=== PATIENT | male | born 1970 | race Two or more races ===

== ENCOUNTER 2022-04-14 17:33 | Emergency (ER) | payer OTHER ==
[~2022-04-14] VITALS: Ht 177.8 cm; Wt 86.2 kg
[2022-04-14] MEDS ORDERED: KETO10TA2 PO (22:52)
[2022-04-14] MEDS ORDERED: TAMS0.4C PO (22:52)
[2022-04-14] MEDS ORDERED: CIPRO500 MG PO (22:52)
== END 2022-04-14 23:17 | disposition home or self-care (01) ==
LOC: ER 17:33
DX: R10.31 Right lower quadrant pain (principal); N13.2 Hydronephrosis with renal and ureteral calculous obstruction